=== PATIENT | female | born 1965 | race Caucasian/White ===

== ENCOUNTER → 2017-10-07 | Outpatient (CLI) | payer OTHER ==
[~2017-10-07] MED LIST: BUDE10.22 INH; LEVA15HF4; NAPR500T; SUMATRIPTAN
== END ==
LOC: CFH 15:09 → MERGE 15:09
PROVIDERS: ATTEND Family Medicine
DX: Z02.9 Encounter for administrative examinations, unspecified (principal)

== ENCOUNTER → 2017-10-13 | Outpatient (CLI) | payer OTHER ==
[~2017-10-13] MED LIST changes: +OMNIPAQUE 350 MG/ML, 75ML BOTTLE ONE
== END | disposition home or self-care (01) ==
LOC: RAD 13:28
PROVIDERS: ATTEND Family Medicine
DX: R07.9 Chest pain, unspecified (principal); K76.0 Fatty (change of) liver, not elsewhere classified
CPT/HCPCS: 71260; Q9967

== ENCOUNTER → 2018-03-26 | Outpatient (CLI) | payer OTHER ==
[~2018-03-26] MED LIST changes: +NAPR-856; -NAPR500T; -OMNIPAQUE 350 MG/ML, 75ML BOTTLE ONE
== END ==
LOC: CFH 15:36
PROVIDERS: ATTEND Student in an Organized Health Care Education/Training Program
DX: M51.36 Other intervertebral disc degeneration, lumbar region (principal); M51.26 Other intervertebral disc displacement, lumbar region
CPT/HCPCS: 72148

== ENCOUNTER 2020-02-17 15:06 | Emergency (ER) | payer OTHER ==
[~2020-02-17] VITALS: Ht 167.6 cm; Wt 71.2 kg
[2020-02-17] MEDS ORDERED: ASPIRIN 81 MG TABLET CHEW ONE (15:54)
[2020-02-17] MEDS ORDERED: ASPIRIN 81 MG TABLET CHEW PO ONE (16:00)
[2020-02-17] MEDS ORDERED: SODIUM CHLORIDE FLUSH 10ML SYR IVF ONE (16:00)
[2020-02-17] MEDS ORDERED: ALBUTEROL/IPRATROPIUM 2.5MG/0.5MG, 3 ML NPPB SCH (16:00)
[2020-02-17] MEDS ORDERED: ALBUTEROL/IPRATROPIUM 2.5MG/0.5MG, 3 ML ONE (16:08)
--- NOTE | 2020-02-17 16:15 | NUR ---
PT STATES HAVING INCRESASED SOB OVER THE PAST TWO MONTHS, PT WITH HX OF ASTHMA STATES SHE HAS NOT BEEN ABLE TO GET INTO SEE HER "ASTHMA DOCTOR". PT DENIES CP. STATES THAT SHE DOES HAVE DISCOMFORT, STATES IT IS FROM HER WORK OF BREATHING. PT SATING ON 100%RA CURRENLTY. PT TO [facility] LOPEZ[facility], BP, CONT PULSE OX.
[2020-02-17 16:17] LABS: BASOPHILS # (AUTO) 0.04 x10^3/uL (0-0.1); BASOPHILS % (AUTO) 1 % (0-1); EOSINOPHILS # (AUTO) 0.11 x10^3/uL (0-0.4); EOSINOPHILS % (AUTO) 2 % (1-7); LYMPHOCYTES # (AUTO) 1.42 x10^3/uL (1-3.4); LYMPHOCYTES % (AUTO) 27 % (22-44); MD NO; MEAN CORPUSCULAR HGB CONC 33.9 g/dL (32.4-35.8); MEAN CORPUSCULAR VOLUME 100.1 fL (80-100); MEAN PLATELET VOLUME 8.1 fL (7.4-10.4); MONOCYTES # (AUTO) 0.74 x10^3/uL (0.2-0.8); MONOCYTES % (AUTO) 14 % (2-9); NEUTROPHILS % (AUTO) 57 % (42-75); PLATELET COUNT 316 x10^3/uL (130-400); RED BLOOD COUNT 3.89 x10^6/uL (3.82-5.3); RED CELL DISTRIBUTION WIDTH 13.4 % (9.6-15.2)
[2020-02-17 16:22] LABS: ALBUMIN 3.8 g/dL (3.4-5.0); ANION GAP 4 mmol/L (5-15); CALCIUM 9.1 mg/dL (8.5-10.1); CHLORIDE 97 mmol/L (98-107)
[2020-02-17 16:28] LABS: ALANINE AMINOTRANSFERASE 22 U/L (12-78); ALKALINE PHOSPHATASE 79 U/L (45-117); BILIRUBIN,TOTAL 0.2 mg/dL (0.2-1.0); CREATININE 0.76 mg/dL (0.55-1.02); TOTAL PROTEIN 7.5 g/dL (6.4-8.2); TROPONIN I < 0.015 ng/mL (0.000-0.045)
[2020-02-17 16:51] VITALS: BP 140/70
--- NOTE | 2020-02-17 16:55 | NUR ---
PT STATES MUCH RELEIF AFTER BREATHING TREATMENT, WILL UPDATE ER PROVIDER
== END 2020-02-17 18:17 | disposition home or self-care (01) ==
LOC: ED 16:07
DX: J45.41 Moderate persistent asthma with (acute) exacerbation (principal); Z90.49 Acquired absence of other specified parts of digestive tract
CPT/HCPCS: 36415; 80053; 83880; 84484; 85025; 93005; 99284; J7512

== ENCOUNTER → 2020-11-15 | Outpatient (CLI) | payer OTHER ==
[~2020-11-15] MED LIST changes: +OMNIPAQUE 350 MG/ML, 75ML BOTTLE ONE
== END | disposition home or self-care (01) ==
LOC: RAD 11:10
PROVIDERS: ATTEND Family Medicine
DX: I77.810 Thoracic aortic ectasia (principal); I70.0 Atherosclerosis of aorta; J98.4 Other disorders of lung; K44.9 Diaphragmatic hernia without obstruction or gangrene; R06.02 Shortness of breath; R07.9 Chest pain, unspecified
CPT/HCPCS: 71260; Q9967

== ENCOUNTER → 2021-03-06 | Outpatient (CLI) | payer OTHER ==
[~2021-03-06] MED LIST changes: -OMNIPAQUE 350 MG/ML, 75ML BOTTLE ONE
== END | disposition home or self-care (01) ==
LOC: RAD 13:12
PROVIDERS: ATTEND Physician Assistant
DX: S92.331A Displaced fracture of third metatarsal bone, right foot, initial encounter for closed fracture (principal); X58.XXXA Exposure to other specified factors, initial encounter; Y93.89 Activity, other specified; Y92.89 Other specified places as the place of occurrence of the external cause; Y99.8 Other external cause status

== ENCOUNTER 2021-07-23 06:40 | Outpatient (CLI) | payer OTHER ==
[2021-07-23] MEDS ORDERED: REGADENOSON 0.4 MG/5 ML SYRINGE ONE (07:33)
== END 2021-07-23 23:59 | disposition home or self-care (01) ==
LOC: CVU 06:40 → CFH 23:59
PROVIDERS: ATTEND Internal Medicine Cardiovascular Disease
DX: R07.89 Other chest pain (principal); I10 Essential (primary) hypertension
CPT/HCPCS: 93306; 93356; J2785